=== PATIENT | male | born 1960 | race Caucasian/White ===

== ENCOUNTER 2020-11-18 23:07 | Emergency (ER) | payer OTHER ==
[2020-11-19 00:22] LABS: BASOPHIL 0.5 % (0-2); EOSINOPHIL 1.7 % (0-5); HCT 42.8 % (42.0-52.0); HGB 14.5 g/dl (13.2-18.0); LYMPHOCYTE 17.2 % (15-48); MCH 31.3 pg (25.0-31.0); MCHC 33.9 g/dL (32.0-36.0); MCV 92.2 fL (78.0-100.0); MONOCYTE 8.4 % (0-12); MPV 12.1 fL (6.0-9.5); NRBC 0; PLT 135 K/uL (150-400); RBC 4.64 M/uL (4.70-6.00); RDW 12.9 % (11.5-14.0); WBC 6.5 K/uL (4.0-10.5)
[2020-11-19 00:40] LABS: ALBUMIN 3.6 g/dL (3.4-5.0); BUN/CREAT RATIO (CALC) 14.8 RATIO; C-REACTIVE PROTEIN 0.4 mg/dL (<=0.90); CREATININE 1.08 mg/dL (0.67-1.17); GLOBULIN (CALCULATION) 3.3 g/dL; POTASSIUM 3.3 mmol/L (3.5-5.1); TOTAL PROTEIN 6.9 g/dL (6.4-8.2)
[2020-11-19] MEDS ORDERED: TESSALON PERLE100 MG PO (02:03)
[2020-11-19] MEDS ORDERED: PROTONIX 40MG T40 MG PO (02:03)
[2020-11-19] MEDS ORDERED: ALBUTEROL0.5 ML/AMP INH (02:03)
[2020-11-19] MEDS ORDERED: HYDROCODONE-CH473 ML PO (02:03)
== END 2020-11-19 02:15 | disposition home or self-care (01) ==
LOC: FER 23:07
PROVIDERS: Emergency Medicine Emergency Medical Services
DX: R05 Cough (principal); R55 Syncope and collapse; J98.11 Atelectasis; J90 Pleural effusion, not elsewhere classified; I10 Essential (primary) hypertension; E78.5 Hyperlipidemia, unspecified; Z79.899 Other long term (current) drug therapy
CPT/HCPCS: 36415; 71275; 80053; 83880; 84484; 85025; 86140; 93005; J2930; Q9967